=== PATIENT | female | born 1950 | race Asian ===

== ENCOUNTER → 2019-08-30 07:25 | Outpatient (CLI) | payer OTHER, SELFPAY ==
[2019-08-30 09:42] LABS: Blood Urea Nitrogen 14 mg/dL (7-17); Calcium 9.4 mg/dL (8.4-10.2); Carbon Dioxide 27 mmol/L (22-32); Chloride 105 mmol/L (98-107); Cholesterol 207 mg/dL (140-199); Estimated Glomerular Filt Rate > 60.0 mL/min (>60); Glucose 95 mg/dL (80-110); HDL Cholesterol 35 mg/dL (40-60); HEMOLYSIS < 15 (0-50); LDL Cholesterol Calculated 137 mg/dL (<100); Sodium 140 mmol/L (137-145); Triglycerides 175 mg/dL (35-150)
== END ==
PROVIDERS: Visit Provider Internal Medicine
DX: Z13.1 Encounter for screening for diabetes mellitus (principal); Z13.220 Encounter for screening for lipoid disorders
CPT/HCPCS: 36415; 80048; 80061

== ENCOUNTER → 2019-10-06 07:59 | Outpatient (CLI) | payer OTHER, SELFPAY ==
--- NOTE | 2019-10-07 14:54 | DI.NM.S_ITS ---
DATE OF SERVICE: PROCEDURE: Exercise perfusion study. INDICATION: Chest pain, underlying hyperlipidemia. RADIOPHARMACEUTICAL: 26.2 mCi technetium-99m Myoview IV was injected at stress and 25.5 mCi of technetium-99m Myoview IV was injected at rest. FINDINGS: CARDIAC STRESS: The patient underwent exercise perfusion study under the supervision of attending staff. She walked on Maxi protocol for 9 minutes 03 seconds, achieved 95% of target heart rate and normal blood pressure response. The patient achieved 10.1 METS of workload. Functional aerobic impairment minus 46 percent. Baseline EKG revealed sinus rhythm with nonspecific ST flattening and slight depression in the inferior and lateral leads, which got mildly pronounced during stress. There were no significant arrhythmias. Baseline artifact is seen, as well. The patient felt fatigue. Artifact breast shadow was seen. There was increased subdiaphragmatic activity. GATED STUDY: At stress, LV ejection fraction 97% and resting LV ejection fraction 93% without any obvious wall motion abnormalities. Resting end- diastolic volume 55 mL. No transient ischemic dilatation. TID ratio 1.04, which is within normal limits. Lung-heart ratio 0.41, which is within normal limits. MYOCARDIAL PERFUSION: Stress supine, resting supine and stress prone images were compared to each other. Stress supine images revealed a small size, mildly diffuse perfusion of mid anterior wall, which got resolved during prone images suggestive of breast tissue attenuation artifact. CONCLUSION: 1. I will call this study a likely normal myocardial perfusion study with evidence of breast tissue attenuation artifact, which got improved during prone images. 2. Good exercise tolerance. 3. Normal hemodynamic response. 4. Overall, this is a low risk myocardial perfusion study. Sultana Hodge - GILSON/tari/sonali doc#: [id number]/job#: [id number] dd: 10/07/2019 12:59:00 dt: 10/07/2019 14:02:00 DICTATING MD/COPIES TO: Landy Severino MD COPIES MNE: MICHELA;
== END ==
PROVIDERS: PCP Internal Medicine; Visit Provider Internal Medicine
DX: R07.9 Chest pain, unspecified (principal); E78.5 Hyperlipidemia, unspecified
CPT/HCPCS: 78452; 93016; 93017; 93018; A9502

== ENCOUNTER → 2020-02-08 08:03 | Outpatient (CLI) | payer OTHER, SELFPAY ==
[2020-02-08 08:42] LABS: Cholesterol 210 mg/dL (140-199); HDL Cholesterol 35 mg/dL (40-60); LDL Cholesterol Calculated 147 mg/dL (<100); Triglycerides 140 mg/dL (35-150)
== END ==
PROVIDERS: PCP Internal Medicine; Referring Provider Internal Medicine; Visit Provider Internal Medicine
DX: E78.5 Hyperlipidemia, unspecified (principal)
CPT/HCPCS: 36415; 80061

== ENCOUNTER → 2020-03-02 10:05 | Outpatient (CLI) | payer OTHER, SELFPAY ==
[2020-03-02 11:49] LABS: BUN Creatinine Ratio 17.5 (6-22); Blood Urea Nitrogen 11 mg/dL (7-17); Estimated Glomerular Filt Rate > 60.0 mL/min (>60); HEMOLYSIS < 15 (0-50); Potassium 4.3 mmol/L (3.4-5.1)
== END ==
PROVIDERS: PCP Internal Medicine; Referring Provider Dermatology; Visit Provider Dermatology
DX: L70.0 Acne vulgaris (principal)
CPT/HCPCS: 36415; 82565; 84132; 84520

== ENCOUNTER → 2020-06-20 11:25 | Outpatient (CLI) | payer OTHER, SELFPAY ==
[2020-06-20 12:30] LABS: Blood Urea Nitrogen 19 mg/dL (7-17); Creatine Kinase 162 U/L (30-135); HEMOLYSIS < 15 (0-50); Potassium 4.3 mmol/L (3.4-5.1)
== END ==
PROVIDERS: PCP Internal Medicine; Referring Provider Physician Assistant; Visit Provider Physician Assistant
DX: L70.8 Other acne (principal); Z71.89 Other specified counseling
CPT/HCPCS: 36415; 82550; 84132; 84520

== ENCOUNTER → 2020-07-18 16:29 | Outpatient (CLI) | payer OTHER, SELFPAY ==
--- NOTE | 2020-07-18 | DI.RAD.S_ITS ---
PROCEDURE: XR KNEE RT 3V INDICATIONS: RIGHT KNEE PAIN TECHNIQUE: 3 views of the knee were acquired. COMPARISON: None. FINDINGS: Bones: No fractures or dislocations. No suspicious bony lesions. Note is made of a [id number] degree of medial compartment knee joint space narrowing, and mild such degeneration at the lateral facet of the patellofemoral joint Soft tissues: No joint effusion. No suspicious soft tissue calcifications. IMPRESSION: Mild to moderate degenerative knee joint osteoarthritis overall without trauma or subluxation. Dictated by: Jacques Juarez M.D. on 07/18/2020 at 17:06 Approved by: Jacques Juarez M.D. on 07/18/2020 at 17:07
== END ==
PROVIDERS: PCP Internal Medicine; Referring Provider Internal Medicine; Visit Provider Internal Medicine
DX: M25.561 Pain in right knee (principal); M17.11 Unilateral primary osteoarthritis, right knee
CPT/HCPCS: 73562

== ENCOUNTER → 2020-08-30 15:12 | Outpatient (ROUT) | payer OTHER, SELFPAY ==
[2020-08-30 15:42] LABS: Alanine Aminotransferase 52 IU/L (<35); Albumin 4.4 g/dL (3.5-5.0); Albumin Globulin Ratio 1.5 (1.0-2.8); Alkaline Phosphatase 106 U/L (38-126); Aspartate Aminotransferase 47 IU/L (14-36); BUN Creatinine Ratio 20.5 (6-22); Bilirubin Total 1.1 mg/dL (0.2-1.3); Blood Urea Nitrogen 15 mg/dL (7-17); Carbon Dioxide 31 mmol/L (22-32); Chloride 104 mmol/L (98-107); Cholesterol 203 mg/dL (140-199); Estimated Glomerular Filt Rate > 60.0 mL/min (>60); Globulin 2.9 g/dL (1.7-4.1); Glucose 98 mg/dL (80-110); HDL Cholesterol 42 mg/dL (40-60); HEMOLYSIS < 15 (0-50); LDL Cholesterol Calculated 126 mg/dL (<100); Potassium 3.8 mmol/L (3.4-5.1); Sodium 139 mmol/L (137-145); Total Protein 7.3 g/dL (6.3-8.2); Triglycerides 173 mg/dL (35-150)
[2020-08-30 15:56] LABS: Vitamin D 25 Hydroxy (D3) 47.5 ng/mL (30.0-100.0)
== END ==
PROVIDERS: PCP Internal Medicine; Visit Provider Internal Medicine
DX: E78.5 Hyperlipidemia, unspecified (principal); E55.9 Vitamin D deficiency, unspecified
CPT/HCPCS: 80053; 80061; 82306

== ENCOUNTER → 2020-09-09 08:24 | Outpatient (CLI) | payer OTHER, SELFPAY ==
[2020-09-09 09:26] LABS: Add Manual Diff / Slide Review NO; Basophils Absolute Auto 0 /uL (0-100); Basophils Percent Auto 0.9 % (0-2); Eosinophils Absolute Auto 100 /uL (0-450); Eosinophils Percent Auto 2.5 % (2-4); Hemoglobin 14.6 g/dL (12.0-16.0); Lymphocytes Absolute Auto 2300 /uL (1100-4500); Lymphocytes Percent Auto 44.9 % (25-40); Mean Corpuscular Hemoglobin 31.1 PG (26-34); Mean Corpuscular Volume 91.3 fL (80-100); Monocytes Absolute Auto 300 /uL (0-900); Monocytes Percent Auto 5.8 % (3-14); Neutrophils Absolute Auto 2400 /uL (1500-7000); Neutrophils Percent Auto 45.9 % (50-75); Platelet Count 238 X10^3/uL (150-400); Red Blood Cell Count 4.71 X10^6/uL (4.0-5.2); Red Cell Distribution Width 11.9 % (11.6-14.8); White Blood Cell Count 5.2 X10^3/uL (4.5-11.0)
[2020-09-11 17:47] LABS: Hepatitis B Surface Antigen NEGATIVE s/c (NEGATIVE)
[2020-09-11 18:00] LABS: Hep C Virus Ab w/Reflex Quant NEGATIVE s/c (NEGATIVE)
== END ==
PROVIDERS: PCP Internal Medicine; Referring Provider Internal Medicine; Visit Provider Internal Medicine
DX: R53.82 Chronic fatigue, unspecified (principal)
CPT/HCPCS: 36415; 84443; 85025; 86803; 87340

== ENCOUNTER → 2020-09-18 13:01 | Outpatient (CLI) | payer OTHER, SELFPAY | PROVIDERS: PCP Internal Medicine; Referring Provider Internal Medicine; Visit Provider Internal Medicine | DX: Z78.0 Asymptomatic menopausal state (principal); Z90.722 Acquired absence of ovaries, bilateral | CPT/HCPCS: 77080 ==

== ENCOUNTER → 2020-12-04 07:23 | Outpatient (CLI) | payer OTHER, SELFPAY ==
[2020-12-04 09:08] LABS: Alanine Aminotransferase 82 IU/L (<35); Albumin 4.4 g/dL (3.5-5.0); Albumin Globulin Ratio 1.8 (1.0-2.8); Alkaline Phosphatase 108 U/L (38-126); Aspartate Aminotransferase 51 IU/L (14-36); BUN Creatinine Ratio 22.7 (6-22); Bilirubin Total 1.2 mg/dL (0.2-1.3); Blood Urea Nitrogen 17 mg/dL (7-17); Carbon Dioxide 32 mmol/L (22-32); Chloride 103 mmol/L (98-107); Cholesterol 129 mg/dL (140-199); Estimated Glomerular Filt Rate > 60.0 mL/min (>60); Globulin 2.4 g/dL (1.7-4.1); Glucose 96 mg/dL (80-110); HDL Cholesterol 44 mg/dL (40-60); HEMOLYSIS < 15 (0-50); LDL Cholesterol Calculated 65 mg/dL (<100); Potassium 4.9 mmol/L (3.4-5.1); Sodium 138 mmol/L (137-145); Total Protein 6.8 g/dL (6.3-8.2); Triglycerides 102 mg/dL (35-150)
[2020-12-07 03:47] LABS: Ceruloplasmin 25.8 mg/dL (19.0-39.0)
== END ==
PROVIDERS: PCP Internal Medicine; Referring Provider Internal Medicine; Visit Provider Internal Medicine
DX: E78.5 Hyperlipidemia, unspecified (principal)
CPT/HCPCS: 36415; 80053; 80061; 82390

== ENCOUNTER → 2020-12-18 10:23 | Outpatient (CLI) | payer OTHER, SELFPAY ==
--- NOTE | 2020-12-18 11:50 | DI.CT.S_ITS ---
PROCEDURE: CT ABDOMEN PELVIS W CON INDICATIONS: Unspecified abdominal pain TECHNIQUE: After the administration of oral and intravenous contrast, 5 mm thick sections acquired from the diaphragms to the symphysis. 5 mm thick coronal and sagittal reformats were performed. For radiation dose reduction, the following was used: automated exposure control, adjustment of mA and/or kV according to patient size. COMPARISON: None. FINDINGS: Image quality: Excellent. ABDOMEN: Lung bases: Lung bases are clear. Heart size is normal. Solid organs: Liver is normal in size and enhancement. Mild hepatic steatosis. Gallbladder is surgically absent. Biliary system is non-dilated. Pancreas enhances normally. Spleen is normal in size and enhancement. No adrenal nodules. Kidneys are normal in size and enhancement, without hydronephrosis. Peritoneum and bowel: Stomach, small bowel, and colon loops are normal in caliber and wall thickness. No free fluid or air. Nodes and vessels: No retroperitoneal or mesenteric adenopathy. Aorta and inferior vena cava are normal in caliber. Miscellaneous: No ventral hernias. PELVIS: Genitourinary: Bladder wall thickness is normal. Miscellaneous: No inguinal hernias or adenopathy. Uterus is surgically absent. Bones: No suspicious bony lesions. No vertebral body compression fractures. IMPRESSION: 1. Mild hepatic steatosis. 2. Remote cholecystectomy and hysterectomy. 3. No evidence of acute abdominal process. Dictated by: Edward Agustin M.D. on 12/18/2020 at 13:27 Approved by: Edward Agustin M.D. on 12/18/2020 at 13:32
== END ==
PROVIDERS: PCP Internal Medicine; Referring Provider Internal Medicine; Visit Provider Internal Medicine
DX: R10.9 Unspecified abdominal pain (principal); K76.0 Fatty (change of) liver, not elsewhere classified; Z90.49 Acquired absence of other specified parts of digestive tract; Z90.710 Acquired absence of both cervix and uterus
CPT/HCPCS: 74177

== ENCOUNTER → 2021-01-10 11:39 | Outpatient (CLI) | payer OTHER, SELFPAY ==
[2021-01-10 13:30] LABS: COVID19 -Nasal RAPID Negative (Negative)
== END ==
PROVIDERS: PCP Internal Medicine; Visit Provider Student in an Organized Health Care Education/Training Program
DX: R11.0 Nausea (principal); R19.7 Diarrhea, unspecified; R53.83 Other fatigue; Z20.822 Contact with and (suspected) exposure to COVID-19
CPT/HCPCS: 87635

== ENCOUNTER 2022-09-04 01:11 | Emergency (ER) | payer OTHER, SELFPAY ==
[2022-09-04] VITALS (15 sets, daily range): BP systolic 95–191; BP diastolic 48–82; PULSE 74–86; RESP 12–30; TEMP 36.8; O2SAT 96–99; BMI 27.4
--- NOTE | 2022-09-04 01:26 | DI.RAD.S_ITS ---
PROCEDURE: XR CHEST 1V INDICATIONS: chest pain TECHNIQUE: One view of the chest was acquired. COMPARISON: None. FINDINGS: Surgical changes and devices: None. Lungs and pleura: Lungs are clear. No pleural effusions or pneumothorax. Mediastinum: Mediastinal contours appear normal. Heart size is normal. Bones and chest wall: No suspicious bony lesions. Overlying soft tissues appear unremarkable. IMPRESSION: 1. No acute cardiopulmonary disease. Dictated by: Vito Inman M.D. on 09/04/2022 at 1:58 Approved by: Vito Inman M.D. on 09/04/2022 at 1:58
[2022-09-04 01:41] LABS: Add Manual Diff / Slide Review NO; Basophils Absolute Auto 100 /uL (0-100); Basophils Percent Auto 0.5 % (0-2); Eosinophils Absolute Auto 200 /uL (0-450); Eosinophils Percent Auto 1.3 % (2-4); Hematocrit 42.6 % (36-46); Hemoglobin 14.4 g/dL (12.0-16.0); Lymphocytes Absolute Auto 1700 /uL (1100-4500); Mean Corpuscular HGB Conc 33.8 % (30-36); Mean Corpuscular Hemoglobin 29.5 PG (26-34); Mean Corpuscular Volume 87.4 fL (80-100); Monocytes Absolute Auto 700 /uL (0-900); Monocytes Percent Auto 6.6 % (3-14); Neutrophils Absolute Auto 8800 /uL (1500-7000); Neutrophils Percent Auto 76.6 % (50-75); Platelet Count 279 X10^3/uL (150-400); Red Blood Cell Count 4.87 X10^6/uL (4.0-5.2); Red Cell Distribution Width 12.8 % (11.6-14.8); White Blood Cell Count 11.4 X10^3/uL (4.5-11.0)
[2022-09-04 01:42] LABS: INR 1.1 (0.9-1.3); Prothrombin Time 12.2 SECONDS (10.1-12.7)
[2022-09-04 01:44] LABS: PTT Partial Thromboplastin Tim 34 SECONDS (26-36)
[2022-09-04 01:47] LABS: Alanine Aminotransferase 92 IU/L (<35); Albumin 4.6 g/dL (3.5-5.0); Albumin Globulin Ratio 1.4 (1.0-2.8); Alkaline Phosphatase 192 U/L (38-126); Aspartate Aminotransferase 82 IU/L (14-36); BUN Creatinine Ratio 22.4 (6-22); Bilirubin Total 0.8 mg/dL (0.2-1.3); Blood Urea Nitrogen 13 mg/dL (7-17); Calcium 9.8 mg/dL (8.4-10.2); Carbon Dioxide 26 mmol/L (22-32); Chloride 103 mmol/L (98-107); Creatine Kinase 51 U/L (30-135); Estimated Glomerular Filt Rate > 60 mL/min (>60); Globulin 3.3 g/dL (1.7-4.1); Glucose 131 mg/dL (80-110); HEMOLYSIS 19 (0-50); Lipase 109 U/L (23-300); Magnesium 2.1 mg/dL (1.6-2.3); Potassium 3.6 mmol/L (3.4-5.1); Sodium 138 mmol/L (137-145); Total Protein 7.9 g/dL (6.3-8.2)
[2022-09-04 01:58] LABS: Troponin I < 0.012 ng/mL (0.01-0.034)
--- NOTE | 2022-09-04 02:21 | ED.CHESTPAIN ---
HPI - Chest Pain General Chief Complaint: Chest Pain Stated Complaint: Chest pain/nausea Time Seen by Provider: 09/04/22 01:25 Source: patient and family Mode of arrival: EMS Limitations: no limitations History of Present Illness HPI narrative: 72-year-old woman with a history of hyperlipidemia presents with left-sided chest pain. She notes that she is been intermittently having left-sided chest pain over the last week or so. It is typically worse when she is lying on her left side and at rest rather than exertional. She notes that she did have a mild upper respiratory infection a couple weeks ago but feels that she has completely resolved all of those symptoms. This evening after laying down for bed she had significant left-sided chest pain associated with some mild nausea. No diaphoresis or dyspnea. She complains of no headaches actual vomiting, constipation or diarrhea. No lower extremity edema. She states that she would mentioned some minor chest pain to a primary care doctor approximately 4 years ago and had a sestamibi study that showed no acute ischemia. Related Data Home Medications Medication Instructions Recorded Confirmed rosuvastatin 5 mg tablet 5 mg PO DAILY 10/09/21 10/09/21 spironolactone 25 mg tablet 25 mg PO DAILY 10/09/21 10/09/21 Previous Rx's Medication Instructions Recorded azithromycin 250 mg tablet See Rx Instructions PO .COMPLEX #6 10/09/21 (Zithromax Z-Shadi) tabs Allergies Allergy/AdvReac Type Severity Reaction Status Date / Time Penicillins Allergy Intermediate Verified 10/09/21 12:21 Review of Systems Review of Systems Narrative: Remainder of complete review of systems is otherwise unremarkable except for that included in the HPI. Patient History Medical History (Updated 09/04/22 @ 06:52 by Avril Galvez MD) Hyperlipidemia Social History Smoking Status: Never smoker Smoking Status: Never smoker Substance Use Type: does not use Exam Initial Vital Signs Initial Vital Signs: Vital Signs Temperature 98.2 F 09/04/22 01:21 Pulse Rate 82 09/04/22 01:21 Respiratory Rate 18 09/04/22 01:21 Blood Pressure 173/82 H 09/04/22 01:21 Pulse Oximetry 99 09/04/22 01:21 Oxygen Delivery Method 09/04/22 01:21 General: Healthy appearing, in no acute distress. Able to give a complete and coherent history. Well-nourished well-developed HEENT: Moist mucous membranes, normal sclera with reactive pupils, Neck: No JVD, supple Respiratory: Lungs are clear to auscultation, no wheezing no rales no rhonchi. Full and symmetrical air movement. She has moderate tenderness along left costochondral margins that does reproduce her chest pain. No breast tenderness or abnormality. No point tenderness over her ribs. Cardiac: Regular rate and rhythm no murmurs no bruits Abdomen: Soft, nontender, good bowel tones, no flank pain Skin: Warm and dry, no rashes Neurologic: Grossly neurologically intact with no obvious asymmetries or abnormalities Extremities: No trauma, well perfused Psych: Cooperative, appropriate insight and affect Course Orders Ordered: ED Orders 09/04/22 01:00 Complete Blood Count AUTO DIFF Stat Comprehensive Metabolic Panel Stat Covid-19 + FLU A/B + RSV - PCR Stat Lipase Stat Magnesium Stat Partial Thromboplastin Time Stat Prothrombin Time INR Stat Troponin & CK Cardiac Panel Stat 09/04/22 01:26 XR chest 1V Stat EKG-12 Lead Stat Discontinued Medications Aspirin (Aspirin 81 Mg Chew Tab) 324 mg PO NOW ONE Stop: 09/04/22 01:27 Last Admin: 09/04/22 01:27 Dose: Not Given Documented By: ARTI Ketorolac Tromethamine (Ketorolac 30 Mg/Ml Vial) 15 mg IV NOW ONE Stop: 09/04/22 02:31 Last Admin: 09/04/22 02:41 Dose: 15 mg Documented By: ARTI Vital Signs Vital signs: Vital Signs - 8 hr 09/04/22 01:21 Temperature 98.2 F Pulse Rate 82 Respiratory Rate 18 Blood Pressure 173/82 H Pulse Oximetry 99 Oxygen Delivery Method Room Air MDM - Chest Pain Lab Data Result diagrams: 09/04/22 01:00 09/04/22 01:00 Labs: Lab Results 09/04/22 09/04/22 09/04/22 Range/Units 01:00 01:00 01:00 WBC 11.4 H (4.5-11.0) X10^3/uL RBC 4.87 (4.0-5.2) X10^6/uL Hgb 14.4 (12.0-16.0) g/dL Hct 42.6 (36-46) % MCV 87.4 (80-100) fL MCH 29.5 (26-34) PG MCHC 33.8 (30-36) % RDW 12.8 (11.6-14.8) % Plt Count 279 (150-400) X10^3/uL Neut % (Auto) 76.6 H (50-75) % Lymph % (Auto) 15.0 L (25-40) % [place] % (Auto) 6.6 (3-14) % Eos % (Auto) 1.3 L (2-4) % Baso % (Auto) 0.5 (0-2) % Neut # (Auto) 8800 H (7454-6796) /uL Lymph # (Auto) 1700 (2425-4574) /uL [place] # (Auto) 700 (0-900) /uL Eos # (Auto) 200 (0-450) /uL Baso # (Auto) 100 (0-100) /uL PT 12.2 (10.1-12.7) SECONDS INR 1.1 (0.9-1.3) APTT 34 (26-36) SECONDS Sodium 138 (137-145) mmol/L Potassium 3.6 (3.4-5.1) mmol/L Chloride 103 (98-107) mmol/L Carbon Dioxide 26 (22-32) mmol/L BUN 13 (7-17) mg/dL Creatinine 0.58 (0.52-1.04) mg/dL Estimated GFR > 60 (>60) mL/min BUN/Creatinine Ratio 22.4 H (6-22) Glucose 131 H (80-110) mg/dL Calcium 9.8 (8.4-10.2) mg/dL Magnesium 2.1 (1.6-2.3) mg/dL Total Bilirubin 0.8 (0.2-1.3) mg/dL AST 82 H (14-36) IU/L ALT 92 H (<35) IU/L Alkaline Phosphatase 192 H (38-126) U/L Total Creatine Kinase 51 (30-135) U/L CK-MB (CK-2) TNP CK-MB (CK-2) Rel Index TNP Troponin I < 0.012 (0.01-0.034) ng/mL Total Protein 7.9 (6.3-8.2) g/dL Albumin 4.6 (3.5-5.0) g/dL Globulin 3.3 (1.7-4.1) g/dL Albumin/Globulin Ratio 1.4 (1.0-2.8) Lipase 109 (23-300) U/L SARS-CoV-2 (PCR) (Negative) Influenza A (RT-PCR) (NEGATIVE) Influenza B (RT-PCR) (NEGATIVE) RSV (PCR) (Negative) 09/04/22 Range/Units 01:00 WBC (4.5-11.0) X10^3/uL RBC (4.0-5.2) X10^6/uL Hgb (12.0-16.0) g/dL Hct (36-46) % MCV (80-100) fL MCH (26-34) PG MCHC (30-36) % RDW (11.6-14.8) % Plt Count (150-400) X10^3/uL Neut % (Auto) (50-75) % Lymph % (Auto) (25-40) % [place] % (Auto) (3-14) % Eos % (Auto) (2-4) % Baso % (Auto) (0-2) % Neut # (Auto) (2447-6654) /uL Lymph # (Auto) (2244-5818) /uL [place] # (Auto) (0-900) /uL Eos # (Auto) (0-450) /uL Baso # (Auto) (0-100) /uL PT (10.1-12.7) SECONDS INR (0.9-1.3) APTT (26-36) SECONDS Sodium (137-145) mmol/L Potassium (3.4-5.1) mmol/L Chloride (98-107) mmol/L Carbon Dioxide (22-32) mmol/L BUN (7-17) mg/dL Creatinine (0.52-1.04) mg/dL Estimated GFR (>60) mL/min BUN/Creatinine Ratio (6-22) Glucose (80-110) mg/dL Calcium (8.4-10.2) mg/dL Magnesium (1.6-2.3) mg/dL Total Bilirubin (0.2-1.3) mg/dL AST (14-36) IU/L ALT (<35) IU/L Alkaline Phosphatase (38-126) U/L Total Creatine Kinase (30-135) U/L CK-MB (CK-2) CK-MB (CK-2) Rel Index Troponin I (0.01-0.034) ng/mL Total Protein (6.3-8.2) g/dL Albumin (3.5-5.0) g/dL Globulin (1.7-4.1) g/dL Albumin/Globulin Ratio (1.0-2.8) Lipase (23-300) U/L SARS-CoV-2 (PCR) Negative (Negative) Influenza A (RT-PCR) Flu a negative (NEGATIVE) Influenza B (RT-PCR) Flu b negative (NEGATIVE) RSV (PCR) Negative (Negative) Imaging Data Chest x-ray: Radiologist's Impression: FINDINGS:? ? Surgical changes and devices:? None.? ? Lungs and pleura:? Lungs are clear.? No pleural effusions or pneumothorax.? ? Mediastinum:? Mediastinal contours appear normal.? Heart size is normal.? ? Bones and chest wall:? No suspicious bony lesions.? Overlying soft tissues appear unremarkable.? ? IMPRESSION:? ? 1.? No acute cardiopulmonary disease. ? ? ? Dictated by: Vito Inman M.D. on 09/04/2022 at 1:58 ? ? ECG Data Interpretation: Sinus rhythm at a rate of 82 Normal intervals, normal axis No acute ischemic changes MDM Narrative Medical decision making narrative: 72-year-old woman presents with left-sided reproducible chest pain. She is been noticing intermittent episodes worse when she is quiet and lying on her left side. The pain is reproducible with palpation along left sternal margin. Cardiac workup is reassuring with normal troponins, x-ray and EKG. She is a slight increase 2 ALT AST and alk-phos however no corresponding abdominal pain and no longer has her gallbladder. Viral panel is unremarkable. She was given IV Toradol with moderate relief of her pain. In retrospect she does recall having been diagnosed with costochondritis with similar complaints before. She has a follow-up appointment with her primary care doctor already scheduled for mid August and will review blood work including the slightly elevated liver enzymes at that time. At this point I am not seeing any evidence of life-threatening infection, cardiac syndrome, pneumothorax, pneumonia, viral etiology and patient is safe for home discharge. Discharge Plan Departure Patient Disposition: Home Clinical Impression: Costalchondritis, Elevated LFTs Instructions: DI for Costochondritis Activity Restrictions/Additional Instructions: Thank you for coming in today Based on your clinical exam response to the IV Toradol I suspect that you have costochondritis. I have given you some written instructions on this. The treatment of choice for costochondritis is nonsteroidals. Using 400 mg of ibuprofen (2 [id number] pills) and 1 Tylenol every 6 hours can be very helpful in controlling pain. I did not find any evidence for severe infection, heart attack or heart attack like syndrome, I do not suspect pulmonary embolism, you do not have a collapsed lungs. You did incidentally have some mildly elevated liver function tests (AST, ALT, alkaline phosphatase). I do not have a full explanation for this but I do not suspect a life-threatening etiology. I would discuss this with your primary care doctor with your scheduled appointment with him next week. If you find that you are getting worse or develop any new symptoms, please feel free to return to the emergency department for further evaluation. Prescriptions: No Action rosuvastatin 5 mg tablet 5 mg PO DAILY spironolactone 25 mg tablet 25 mg PO DAILY azithromycin [Zithromax Z-Shadi] 250 mg tablet See Rx Instructions PO .COMPLEX Qty: 6 0RF Rx Instructions: For 250 mg dose pack: take 500 mg today (day 1), then 250 mg for 4 days (days 2-5) PO Referrals: Fadia Raza MD [Primary Care Provider] -
[2022-09-04 02:26] LABS: COVID-19 CEPHEID 4-PLEX PCR Negative (Negative); Influenza A - CEPHEID Flu A NEGATIVE (NEGATIVE); Influenza B - CEPHEID Flu B NEGATIVE (NEGATIVE); Respiratory Syncytial Virus Negative (Negative)
[2022-09-04] MEDS: KETOROLAC 30 MG/ML VIAL 15 MG IV (02:41)
== END 2022-09-04 07:08 | disposition home or self-care (01) ==
PROVIDERS: Emergency Provider Emergency Medicine; PCP Internal Medicine
DX: M94.0 Chondrocostal junction syndrome [Tietze] (principal); R79.89 Other specified abnormal findings of blood chemistry; Z20.822 Contact with and (suspected) exposure to COVID-19
CPT/HCPCS: 0241U; 36415; 71045; 80053; 82550; 83690; 83735; 84484; 85025; 85610; 85730; 93005; 93010; 96374; 99284; J1885

== ENCOUNTER → 2024-12-21 09:43 | Outpatient (CLI) | payer OTHER, SELFPAY ==
--- NOTE | 2024-12-21 09:44 | DI.NM.S_ITS ---
PROCEDURE: NM OJE PERF SPECT REST & STR Rest and exercise myocardial perfusion SPECT with gated imaging and ejection fraction RADIOPHARMACEUTICAL: 12.2 mCi Tc-99m sestamibi IV at rest and 25.4 mCi Tc-99m sestamibi IV at peak exercise. A one day-protocol was performed. INDICATIONS: CHEST PAIN TECHNIQUE: Radiopharmaceutical was injected at peak stress test, and also at rest. SPECT images were obtained. SPECT myocardial perfusion images were displayed in short axis, horizontal long axis, and vertical long axis views. Gated images were reviewed using [employer] software. COMPARISON: None. CARDIAC STRESS: A standard Maxi treadmill exercise tolerance test was performed by the patient under the supervision of an attending staff. The patient exercised for 7 minutes and 20 seconds; functional aerobic impairment (YENIFER) is +30%. Hemodynamic data: There is normal blood pressure and heart rate response to exercise stress. Patient achieved 104% of maximum predicted heart rate at peak exercise. Symptoms: Patient denied chest pain during exercise. EKG: Mild horizontal ST depressions during exercise and recovery; no ectopy. FINDINGS: Raw data: There is good myocardial labeling by radiotracer. No significant motion artifacts. Left ventricle function: Gated images demonstrate normal left ventricle wall thickening. No segmental wall motion abnormality. No transient ischemic dilation; TID is 0.84 (normal less than 1.3). The left ventricle resting end-diastolic volume is 47mL. Left ventricle stress ejection fraction is 98%; normal values are above 45%. Myocardial perfusion: There is a mildly intense fixed distal anterior wall defect that resolves with prone imaging, suggesting breast attenuation artifact. SSS 0. IMPRESSION: Low risk, normal treadmill nuclear stress test from inducible ischemia standpoint. 1) There is a mildly intense fixed distal anterior wall defect that resolves with prone imaging, suggesting breast attenuation artifact. SSS 0. 2) Normal left ventricular size, wall motion, and systolic function (EF post stress 98%). 3) Mild horizontal ST depressions during exercise or recovery. These changes are non-diagnostic in the setting of reassuring perfusion images. 4) No angina during the study. 5) Mildly reduced exercise tolerance (10.1METs, YENIFER +30%). 104% of maximum predicted heart rate reached. Appropriate BP response to exercise. 6) Compared to the nuclear stress test done 10/06/2019, no significant change. Dictated by: Cathie Sommer MD on 12/21/2024 at 16:59 Approved by: Cathie Sommer MD on 12/21/2024 at 17:04
== END ==
PROVIDERS: PCP Internal Medicine; Referring Provider Family Medicine; Visit Provider Family Medicine
DX: R07.9 Chest pain, unspecified (principal)
CPT/HCPCS: 78452; 93017; A9502

== ENCOUNTER → 2025-08-09 13:38 | Outpatient (CLI) | payer OTHER, SELFPAY ==
[2025-08-09 14:54] LABS: Blood Urea Nitrogen 18 mg/dL (7-17); Calcium 9.4 mg/dL (8.4-10.2); Carbon Dioxide 26 mmol/L (22-32); Chloride 103 mmol/L (98-107); Estimated Glomerular Filt Rate > 60 mL/min (>60); Glucose 125 mg/dL (70-99); HEMOLYSIS < 15 (0-50); Potassium 3.7 mmol/L (3.4-5.1); Sodium 141 mmol/L (137-145)
== END ==
PROVIDERS: PCP Internal Medicine; Referring Provider Internal Medicine; Visit Provider Physician Assistant
DX: L65.8 Other specified nonscarring hair loss (principal)
CPT/HCPCS: 36415; 80048